=== PATIENT | male | born 1995 | race Hispanic/Latino ===

== ENCOUNTER 2021-07-24 20:26 | Emergency (ER) | payer SELFPAY ==
--- NOTE | 2021-07-24 21:44 | Emergency Department Report ---
<BASIA ZHANG - Last Filed: 07/24/21 23:09> ED Seizure HPI - General Chief Complaint: Seizure Stated Complaint: SEIZURE AND DRUG USE Time Seen by Provider: 07/24/21 21:12 Source: patient Mode of arrival: Stretcher Limitations: No Limitations - History of Present Illness Initial Comments: 26-year-old male with no significant past medical history presents to the hospital with EMS. As per triage they report that patient was using recreational mushrooms 3 hours ago and had a witnessed seizure by friends. Patient is currently alert but appears to be at high and unable to describe exactly what happened and why he is here. His history of drug abuse is unclear at this time - Related Data Allergies Allergy/AdvReac Type Severity Reaction Status Date / Time No Known Allergies Allergy Unverified 07/24/21 20:53 ED Review of Systems Comment: All other systems reviewed and negative ED Past Medical Hx - Past Medical History Previous Medical History?: Yes Additional medical history: Chronic Drug Use - Surgical History Past Surgical History?: Yes - Social History Smoking Status: Never Smoker Substance Use Type: None ED Physical Exam - General Limitations: No Limitations - Other Other exam information: General: No acute distress Head: Multiple abrasions and contusions to the forehead Eyes: normal appearance ENT: Moist mucous membranes Neck: Normal appearance, no midline tenderness Chest: Clear to auscultation bilaterally CV: Regular rate and rhythm Abdomen: Soft, normal bowel sounds, nontender, nondistended, no rebound or guard ing Back: Normal inspection Extremity: Normal inspection, full range of motion Neuro: Alert, no facial asymmetry, speech clear, no gross motor sensory deficit Psych: Patient cannot have a fluent conversation and there is a delay when answering questions and with intermittent mumbling Skin: No rash ED Medical Decision Making - Lab Data Result diagrams: 07/24/21 21:38 07/24/21 21:38 Lab Results 07/24/21 07/24/21 07/24/21 Range/Units 21:38 21:38 21:38 WBC 5.4 (4.5-11.0) K/mm3 RBC 5.51 H (3.65-5.03) M/mm3 Hgb 14.4 (11.8-15.2) gm/dl Hct 44.2 (35.5-45.6) % MCV 80 L (84-94) fl MCH 26 L (28-32) pg MCHC 33 (32-34) % RDW 12.8 L (13.2-15.2) % Plt Count 229 (140-440) K/mm3 Lymph % (Auto) 14.7 (13.4-35.0) % Upson % (Auto) 6.1 (0.0-7.3) % Eos % (Auto) 0.0 (0.0-4.3) % Baso % (Auto) 0.3 (0.0-1.8) % Lymph # (Auto) 0.8 L (1.2-5.4) K/mm3 Upson # (Auto) 0.3 (0.0-0.8) K/mm3 Eos # (Auto) 0.0 (0.0-0.4) K/mm3 Baso # (Auto) 0.0 (0.0-0.1) K/mm3 Seg Neutrophils % 78.9 H (40.0-70.0) % Seg Neutrophils # 4.3 (1.8-7.7) K/mm3 Sodium 134 L (137-145) mmol/L Potassium 4.2 (3.6-5.0) mmol/L Chloride 95.2 L (98-107) mmol/L Carbon Dioxide 25 (22-30) mmol/L Anion Gap 18 mmol/L BUN 14 (9-20) mg/dL Creatinine 1.0 (0.8-1.3) mg/dL Estimated GFR > 60 ml/min BUN/Creatinine Ratio 14 % Glucose 140 H (75-100) mg/dL Calcium 9.5 (8.4-10.2) mg/dL Magnesium 2.40 H (1.7-2.3) mg/dL Total Bilirubin 0.40 (0.1-1.2) mg/dL AST 35 (5-40) units/L ALT 15 (7-56) units/L Alkaline Phosphatase 69 (35-129) units/L Total Protein 7.3 (6.3-8.2) g/dL Albumin 4.8 (3.9-5) g/dL Albumin/Globulin Ratio 1.9 % Plasma/Serum Alcohol < 0.01 (0-0.07) % - EKG Data -: EKG Interpreted by Ia EKG shows normal: sinus rhythm, intervals (qtc 408), ST-T waves (no stemi) Rate: normal - EKG Data When compared to previous EKG there are: previous EKG unavailable - Radiology Data Radiology results: report reviewed CT cervical spine wo con, CT head/brain wo con INDICATION / CLINICAL INFORMATION: ams, sz, drug abuse mushrooms, head inj. TECHNIQUE: Axial coronal and sagittal images All CT scans at this location are performed using CT dose reduction for ALARA by means of automated exposure control. COMPARISON: None available. FINDINGS: Head: No acute intracranial hemorrhage. Ventricles are normal in size without midline shift or mass effect. No extra-axial fluid collection is seen. There is ethmoid sinus disease identified. Minimal maxillary sinus mucosal thickening on the right. No skull fracture is identified. Cervical spine: Cervical spine alignment appears normal. Facets appear well aligned throughout. Odontoid and skull base appear normal. Mild right maxillary sinus disease. Mandible appears normal. Visualized ribs are unremarkable. IMPRESSION: 1. No acute findings on CT head or cervical spine. - Medical Decision Making 2013 signed since patient is altered due to drugs. Patient was signed out to Dr. Elliott to [place] if mental status improves. His labs and imaging tests are unremarkable. UDS pending. If patient is still altered by 6 AM then we may proceed with mental health consultation for possible drug-induced psychosis Critical Care Time: No ED Disposition Clinical Impression: Convulsion, Transient alteration of awareness Disposition: 01 HOME / SELF CARE / HOMELESS Condition: Good Instructions: Seizure, Adult, [id number] Additional Instructions: Recommend that patient not drive or operate motor vehicles for the next 6 months , or until cleared to do so by a primary care doctor or neurologist. Recommend follow-up with a primary care doctor or neurologist within the next week. Do not consume mushrooms, tobacco, smoke products, or alcohol. Please return to the emergency room right away with new pain, worsened pain, migration of pain, projectile vomiting, change in mental status, confusion, inability tolerate liquid feeds, new, worsened or different symptoms not present on the initial emergency room evaluation Referrals: NOEL JOVEL MD [Primary Care Provider] - 3-5 Days CLARISSA BALDERAS MD [Referring] - 3-5 Days DEVEN WELLS MD [Staff Physician] - 3-5 Days Forms: Work/School Release Form(ED) <JEFFERY ELLIOTT - Last Filed: 07/25/21 01:29> ED Review of Systems ROS: Stated complaint: SEIZURE AND DRUG USE Other details as noted in HPI ED Course Vital Signs 07/24/21 07/24/21 20:46 21:00 Temperature 98 F Pulse Rate 82 Respiratory 18 Rate Blood Pressure 160/80 O2 Sat by Pulse 96 99 Oximetry - Reevaluation(s) Reevaluation #1: 07/25/21 01:27 The patient is reassessed by myself. He is awake, alert, oriented, sober, of sound mind, and exhibits decision-making capacity. He is alert to name, place, location and month. He denies physical pain. He is not homicidal suicidal, he is not experiencing hallucinations, and he has not tried to overdose. Family member or significant other will be able to pick him up. I discussed all findings with the patient. He articulated understanding. He is advised to not drive or operate motor vehicles for the next 6 months or until cleared to do so by her primary care doctor or neurologist. ED Medical Decision Making - Lab Data Result diagrams: 07/24/21 21:38 07/24/21 21:38 Critical care attestation.: If time is entered above; I have spent that time in minutes in the direct care of this critically ill patient, excluding procedure time. ED Disposition Is pt being admited?: No Does the pt Need Aspirin: No
[2021-07-24 21:56] LABS: Basophils % (Auto) 0.3 % (0.0-1.8); Hematocrit 44.2 % (35.5-45.6); Hemoglobin 14.4 gm/dl (11.8-15.2); Lymphocytes # (Auto) 0.8 K/mm3 (1.2-5.4); Lymphocytes % (Auto) 14.7 % (13.4-35.0); Mean Corpuscular HGB Conc 33 % (32-34); Mean Corpuscular Volume 80 fl (84-94); Monocytes # (Auto) 0.3 K/mm3 (0.0-0.8); Monocytes % (Auto) 6.1 % (0.0-7.3); Platelet Count 229 K/mm3 (140-440); Red Blood Count 5.51 M/mm3 (3.65-5.03); Red Cell Distribution Width 12.8 % (13.2-15.2)
[2021-07-24 22:12] LABS: Alanine Aminotransferase 15 units/L (7-56); Albumin 4.8 g/dL (3.9-5); BUN/Creatinine Ratio 14; Blood Urea Nitrogen 14 mg/dL (9-20); Calcium 9.5 mg/dL (8.4-10.2); Hemolysis Index 20
--- NOTE | 2021-07-24 22:16 | Cat Scan Report ---
. CT cervical spine wo con, CT head/brain wo con INDICATION / CLINICAL INFORMATION: ams, sz, drug abuse mushrooms, head inj. TECHNIQUE: Axial coronal and sagittal images All CT scans at this location are performed using CT dose reduction for ALARA by means of automated exposure control. COMPARISON: None available. FINDINGS: Head: No acute intracranial hemorrhage. Ventricles are normal in size without midline shift or mass e ffect. No extra-axial fluid collection is seen. There is ethmoid sinus disease identified. Minimal ma xillary sinus mucosal thickening on the right. No skull fracture is identified. Cervical spine: Cervical spine alignment appears normal. Facets appear well aligned throughout. Odontoid and skull ba se appear normal. Mild right maxillary sinus disease. Mandible appears normal. Visualized ribs are un remarkable. IMPRESSION: 1. No acute findings on CT head or cervical spine. Signer Name: Ky Shaver MD Signed: 07/24/2021 10:12 PM Workstation Name: [id number]
[2021-07-25 03:25] VITALS: BP 105/63
== END 2021-07-25 03:00 | disposition home or self-care (01) ==
LOC: ED 20:26
DX: R56.9 Unspecified convulsions (principal); G89.29 Other chronic pain; Z98.890 Other specified postprocedural states; Z79.899 Other long term (current) drug therapy
CPT/HCPCS: 36415; 70450; 72125; 80053; 80320; 83735; 85025; 93005; 99284; G0480